=== PATIENT | male | born 1960 | race Caucasian/White ===

== ENCOUNTER 2021-09-17 10:19 | Day surgery (SDC) | payer MEDICARE, OTHER ==
[~2021-09-17] VITALS: Ht 167.6 cm; Wt 86.3 kg
[~2021-09-17 10:19] MED LIST: ASPI-1444 PO; ATOR20TA86 PO; CHOL400T33 PO; HEPARIN SODIUM 1000 UNITS/NS 500 ML ONE; HYDR-4723 PO; IOHEXOL 300 MG/ML 100 ML VIAL ONE; IOHEXOL 300 MG/ML 150 ML VIAL ONE; IOHEXOL 300 MG/ML 50 ML VIAL ONE; LEVE500T20 PO; LIDOCAINE/PF 1% 30 ML VIAL ONE; METO25XL PO; NITR0.4T50 SL; SODIUM BICARBONATE 50 MEQ/50 ML VIAL ONE; SODIUM CHLORIDE 0.9% 1,000 ML IV ONE; SODIUM CHLORIDE 0.9% 1,000 ML ONE; VARE1TAB25 PO
[2021-09-17] MEDS ORDERED: DiphenhydrAMINE HCL 50 MG CAPSULE ONE (10:50)
[2021-09-17] MEDS ORDERED: DIAZEPAM 5 MG TABLET ONE (10:50)
[2021-09-17] MEDS ORDERED: ASPIRIN 81 MG CHEWABLE TABLET ONE (10:51)
[2021-09-17] MEDS ORDERED: DiphenhydrAMINE HCL 50 MG CAPSULE PO ONE (12:00)
[2021-09-17] MEDS ORDERED: DIAZEPAM 5 MG TABLET PO ONE (12:00)
[2021-09-17] MEDS ORDERED: ASPIRIN 81 MG CHEWABLE TABLET PO ONE (12:00)
[2021-09-17] MEDS ORDERED: LIDOCAINE/PF 1% 30 ML VIAL ONE (13:32)
[2021-09-17] MEDS ORDERED: IOHEXOL 300 MG/ML 150 ML VIAL ONE (13:32)
[2021-09-17] MEDS ORDERED: SODIUM BICARBONATE 50 MEQ/50 ML VIAL ONE (13:32)
[2021-09-17] MEDS ORDERED: HEPARIN SODIUM 1000 UNITS/NS 1,000 ML ONE (13:33)
[2021-09-17 13:44] VITALS: BP 141/76
[2021-09-17] MEDS ORDERED: MIDAZOLAM HCL 2 MG/2 ML VIAL ONE ×2 (13:49→14:01)
[2021-09-17] MEDS ORDERED: FentaNYL CITRATE PF 100 MCG/2 ML VIAL ONE ×2 (13:49→14:01)
[2021-09-17] MEDS ORDERED: HEPARIN SODIUM 1000 UNITS/NS 1,000 ML IARTER ONE (14:15)
[2021-09-17] MEDS ORDERED: LIDOCAINE 1% 30 ML/SOD BICARB 8.4% 4 ML SQ ONE (14:15)
[2021-09-17] MEDS ORDERED: SODIUM CHLORIDE 0.9% 500 ML IV ONE (14:15)
[2021-09-17] MEDS ORDERED: FentaNYL CITRATE PF 100 MCG/2 ML VIAL IVP ONE ×3 (14:15)
[2021-09-17] MEDS ORDERED: IOHEXOL 300 MG/ML 150 ML VIAL IARTER ONE (14:15)
[2021-09-17] MEDS ORDERED: MIDAZOLAM HCL 2 MG/2 ML VIAL IVP ONE ×3 (14:15)
[2021-09-17 14:21] VITALS: BP 153/86
== END 2021-09-17 18:00 | disposition home or self-care (01) ==
LOC: CATHLAB 10:19
PROVIDERS: ATTEND Internal Medicine Interventional Cardiology
DX: R94.39 Abnormal result of other cardiovascular function study (principal); R07.89 Other chest pain; I10 Essential (primary) hypertension; E11.9 Type 2 diabetes mellitus without complications; Z86.19 Personal history of other infectious and parasitic diseases; E78.00 Pure hypercholesterolemia, unspecified; Z79.82 Long term (current) use of aspirin; E78.5 Hyperlipidemia, unspecified; Z86.73 Personal history of transient ischemic attack (TIA), and cerebral infarction without residual deficits; Z98.890 Other specified postprocedural states; Z79.899 Other long term (current) drug therapy; Z80.8 Family history of malignant neoplasm of other organs or systems
CPT/HCPCS: 93005; 93458; 99152; C1760; J1644; J2250; J3010; J3490 ×2; J7030; Q9967